=== PATIENT | male | born 1960 | race Two or more races ===

== ENCOUNTER 2022-05-28 10:10 | Outpatient (CLI) | payer MEDICAID ==
[~2022-05-28] VITALS: Ht 168.9 cm; Wt 138.3 kg
[2022-05-28] MEDS ORDERED: albuterol 2.5 MG/3 ML nebule NEB ONE (11:15)
== END 2022-05-28 23:59 | disposition home or self-care (01) ==
LOC: RT 10:10
PROVIDERS: ATTEND Physician Assistant
DX: R06.02 Shortness of breath (principal); R06.09 Other forms of dyspnea; Z79.899 Other long term (current) drug therapy
CPT/HCPCS: 85018; 94060; 94729; 94760